=== PATIENT | male | born 1955 | race African-American/Black ===

== ENCOUNTER 2019-10-05 17:47 | Inpatient (IN) ==
[2019-10-05] MEDS ORDERED: FUROSEMIDE 40 MG/4 ML VIAL IV STA (19:03)
[2019-10-05 19:08] LABS: ABG Base Excess 14.6 MMOL/L (-2.5-2.5); ABG HCO3 38.3 MMOL/L (20-26); ABG Oxygen Saturation 90.6 % (95-100); ABG PO2 67.3 MM HG (80-95); ABG TCO2 45.2 MMOL/L (23-27); Allen Test Positive
[2019-10-05 19:13] LABS: ABG PH 7.191 (7.35-7.45)
[2019-10-05 19:13] LABS: Basophils % 0.2 % (0.0-0.8); Eosinophils # 0.2 10*3/uL (0.0-0.87); Eosinophils % 1.7 % (0.00-10.9); Hematocrit 39.3 VOL% (42.0-52.0); Hemoglobin 10.6 GM/DL (14.0-18.0); Immature Granulocytes % 1.2 %; Immature Granulocytes Absolute 0.14 #; Lymphocytes # 1.3 10*3/uL (1.4-4.0); Lymphocytes % 11.4 % (21.2-54.2); Mean Corpuscular Volume 96.8 FL (87-102); Mean Platelet Volume 10.1 FL (9.6-12.0); Monocytes % 6.2 % (1.7-12.7); Neutrophils % 79.3 % (38.7-73.9); Platelet Count 210 T/CUMM (130-400); Red Blood Count 4.06 MC/CUMM (3.8-5.5); Red Cell Distribution Width 13.4 % (9.3-17.3); White Blood Count 11.5 T/CUMM (4-12)
[2019-10-05 19:25] LABS: PT Patient Result 10.7 SECS (9.6-12.2)
[2019-10-05 19:30] LABS: Hypochromasia 1+
[2019-10-05 19:31] LABS: Basophilic Stippling Few; Stomatocytes 1+
[2019-10-05 19:32] LABS: Platelet Estimate Adequate; Polychromasia Few
[2019-10-05 19:33] LABS: Alanine Aminotransferase < 6 U/L (16-61); Albumin 2.9 G/DL (3.4-5.0); Alkaline Phosphatase 98 U/L (45-117); Aspartate Amino Transferase 11 U/L (0-37); Blood Urea Nitrogen 10 MG/DL (7-18); Calcium 8.6 MG/DL (8.5-10.1); Estimated Glom Filtration Rate 209 ML/MIN; Glucose 108 MG/DL (74-106); Osmolality,Calculated 274.7 MOS/KG (273-304); Total Protein 7.6 G/DL (6.4-8.3)
[2019-10-05 20:25] LABS: ABG Base Excess 16.8 MMOL/L (-2.5-2.5); ABG HCO3 40.7 MMOL/L (20-26); ABG Oxygen Saturation 86.7 % (95-100); ABG PH 7.255 (7.35-7.45); ABG PO2 57.6 MM HG (80-95); ABG TCO2 45.4 MMOL/L (23-27)
[2019-10-05] MEDS ORDERED: FUROSEMIDE 40 MG/4 ML VIAL IV ONE (21:20)
[2019-10-05 21:55] LABS: ABG Base Excess 17.7 MMOL/L (-2.5-2.5); ABG HCO3 41.6 MMOL/L (20-26); ABG Oxygen Saturation 88.1 % (95-100); ABG PH 7.239 (7.35-7.45); ABG PO2 58.6 MM HG (80-95); ABG TCO2 46.9 MMOL/L (23-27)
[2019-10-05] MEDS ORDERED: SUCCINYLCHOLINE 200 MG/10 ML VIAL ONE (22:42)
[2019-10-05] MEDS ORDERED: LIDOCAINE 100 MG/5 ML SYRINGE ONE (22:45)
[2019-10-05] MEDS ORDERED: ETOMIDATE 20 MG/10 ML VIAL IV ONE (22:50)
[2019-10-05] MEDS ORDERED: ROCURONIUM 100 MG/10 ML VIAL IV ONE (22:51)
[2019-10-05] MEDS ORDERED: ACETAMINOPHEN 325 MG TABLET PO PRN (22:59)
[2019-10-05] MEDS ORDERED: ONDANSETRON 4 MG/2 ML VIAL IV PRN (22:59)
[2019-10-05] MEDS ORDERED: PROPOFOL 1,000 MG/100 ML BOTTLE IV ONE (23:05)
[2019-10-05] MEDS: PROPOFOL 1,000 MG/100 ML BOTTLE IV SCH (23:59)
[2019-10-06] MEDS ORDERED: PHENYLEPHRINE DRIP 40 MG/250 ML PREMIX IV ONE (00:16)
[2019-10-06] MEDS ORDERED: PHENYLEPHRINE DRIP 40 MG/250 ML PREMIX IV PRN (00:21)
[2019-10-06 00:55] LABS: ABG Base Excess 19.4 MMOL/L (-2.5-2.5); ABG HCO3 43.8 MMOL/L (20-26); ABG Oxygen Saturation 98.9 % (95-100); ABG PCO2 59.6 MM HG (35-48); ABG PH 7.499 (7.35-7.45); ABG PO2 90.5 MM HG (80-95); ABG TCO2 41.3 MMOL/L (23-27); Allen Test Positive; Pt O2 Delivery Device Ventilator
[2019-10-06] MEDS: methylPREDNISolone SOD SUC 40 MG/1 ML VIAL IV SCH ×4 (01:01→18:10)
[2019-10-06] MEDS: MEROPENEM 500 MG in SODIUM CHLORIDE 0.9% 100 ML IV SCH ×4 (01:01→18:39)
[2019-10-06] MEDS: ALBUTEROL/IPRATROPIUM 3 ML NEB RESP TX SCH ×4 (01:52→19:58)
[2019-10-06] MEDS ORDERED: SKIN HEALING OINT (AQUAPHOR) 50 GM TUBE TOP PRN (03:49)
[2019-10-06 04:08] LABS: ABG HCO3 45.4 MMOL/L (20-26); ABG Oxygen Saturation 98.2 % (95-100); ABG PCO2 54.8 MM HG (35-48); ABG PH 7.536 (7.35-7.45); ABG PO2 89.9 MM HG (80-95); ABG TCO2 47.1 MMOL/L (23-27); Allen Test Positive; Pt O2 Delivery Device Ventilator
[2019-10-06] MEDS: ALBUMIN 25% 25 GM in PREMIX 1 EACH IV SCH ×3 (04:41→20:34)
[2019-10-06] MEDS: PROPOFOL 1,000 MG/100 ML BOTTLE IV SCH ×4 (04:42→23:12)
[2019-10-06] MEDS: AZITHROMYCIN INJ 250 MG in SODIUM CHLORIDE 0.9% 250 ML IV SCH (05:35)
[2019-10-06 05:36] LABS: Albumin 3.1 G/DL (3.4-5.0); Bilirubin,Total 1.1 MG/DL (0.2-1.0); Calcium 8.6 MG/DL (8.5-10.1); Osmolality,Calculated 270.1 MOS/KG (273-304); Total Protein 7.6 G/DL (6.4-8.3)
[2019-10-06] MEDS ORDERED: MAGNESIUM SULF RIDER 4 GM in PREMIX 1 EACH IV PRN (05:44)
[2019-10-06] MEDS ORDERED: MAGNESIUM SULF RIDER 2 GM in PREMIX 1 EACH IV PRN (05:44)
[2019-10-06] MEDS: INSULIN REGULAR 100 UNIT/ML SUBCUT SCH ×3 (05:55→17:33)
[2019-10-06] MEDS ORDERED: MAGNESIUM SULF RIDER 2 GM in PREMIX 1 EACH IV ONE (07:38)
[2019-10-06] MEDS: FUROSEMIDE 40 MG/4 ML VIAL IV SCH ×2 (09:08→16:44)
[2019-10-06] MEDS: PANTOPRAZOLE 40 MG TABLET PO SCH (09:09)
[2019-10-06] MEDS: BISACODYL 5 MG TABLET PO SCH (09:09)
[2019-10-06] MEDS: POTASSIUM CHLORIDE 10 MEQ TABLET PO SCH (09:10)
[2019-10-06] MEDS: DOCUSATE SODIUM 100 MG CAPSULE PO SCH ×2 (09:11→20:34)
[2019-10-06] MEDS: METOPROLOL TARTRATE 25 MG TABLET PO SCH ×2 (09:11→20:34)
[2019-10-06] MEDS: POLYETHYLENE GLYCOL POWDER 255 GM BOTTLE PO SCH (09:57)
[2019-10-06] MEDS ORDERED: GLUCAGON 1 MG VIAL IM PRN (15:59)
[2019-10-06] MEDS ORDERED: DEXTROSE 10% 25 GM/250 ML BAG IV PRN (15:59)
[2019-10-06] MEDS ORDERED: FUROSEMIDE 40 MG/4 ML VIAL IV ONE (21:20)
[2019-10-07] MEDS: INSULIN REGULAR 100 UNIT/ML SUBCUT SCH ×4 (00:01→18:18)
[2019-10-07] MEDS: ALBUTEROL/IPRATROPIUM 3 ML NEB RESP TX SCH ×4 (01:38→19:30)
[2019-10-07] MEDS: methylPREDNISolone SOD SUC 40 MG/1 ML VIAL IV SCH ×4 (01:45→18:17)
[2019-10-07] MEDS: MEROPENEM 500 MG in SODIUM CHLORIDE 0.9% 100 ML IV SCH ×4 (01:50→18:18)
[2019-10-07] MEDS: ALBUMIN 25% 25 GM in PREMIX 1 EACH IV SCH ×3 (04:05→20:35)
[2019-10-07 04:38] LABS: ABG Base Excess 17.4 MMOL/L (-2.5-2.5); ABG Oxygen Saturation 93.9 % (95-100); ABG PCO2 49.2 MM HG (35-48); ABG PH 7.549 (7.35-7.45); ABG PO2 63.9 MM HG (80-95); ABG TCO2 43.5 MMOL/L (23-27); Allen Test Positive; Pt O2 Delivery Device Ventilator
[2019-10-07 04:38] LABS: Basophils % 0.1 % (0.0-0.8); Hematocrit 34.7 VOL% (42.0-52.0); Hemoglobin 10.5 GM/DL (14.0-18.0); Immature Granulocytes % 0.6 %; Immature Granulocytes Absolute 0.07 #; Lymphocytes # 0.5 10*3/uL (1.4-4.0); Lymphocytes % 3.8 % (21.2-54.2); Mean Corpuscular HGB Conc 30.3 GM/DL (32-36); Mean Corpuscular Volume 85.7 FL (87-102); Mean Platelet Volume 10.6 FL (9.6-12.0); Monocytes % 3.1 % (1.7-12.7); Neutrophils % 92.4 % (38.7-73.9); Platelet Count 239 T/CUMM (130-400); Red Blood Count 4.05 MC/CUMM (3.8-5.5); Red Cell Distribution Width 13.6 % (9.3-17.3); White Blood Count 12.1 T/CUMM (4-12)
[2019-10-07 04:58] LABS: Prealbumin 10.9 MG/DL (20-40)
[2019-10-07] MEDS: AZITHROMYCIN INJ 250 MG in SODIUM CHLORIDE 0.9% 250 ML IV SCH (05:20)
[2019-10-07 05:46] LABS: Band Neutrophils 2 % (0-10); Lymphocytes 3 % (20-55); Platelet Estimate Normal; Segmented Neutrophils 93 % (50-85); Total Cells Counted 100
[2019-10-07] MEDS: POTASSIUM CHLORIDE 10 MEQ TABLET PO SCH (08:22)
[2019-10-07] MEDS: METOPROLOL TARTRATE 25 MG TABLET PO SCH ×2 (08:22→20:35)
[2019-10-07] MEDS: DOCUSATE SODIUM 100 MG CAPSULE PO SCH (08:22)
[2019-10-07] MEDS: PANTOPRAZOLE 40 MG TABLET PO SCH (08:22)
[2019-10-07] MEDS: FUROSEMIDE 40 MG/4 ML VIAL IV SCH ×2 (08:23→16:15)
[2019-10-07] MEDS: POLYETHYLENE GLYCOL POWDER 255 GM BOTTLE PO SCH (08:28)
[2019-10-07] MEDS: PROPOFOL 1,000 MG/100 ML BOTTLE IV SCH ×2 (11:23→21:10)
[2019-10-07] MEDS: DOCUSATE SODIUM 100 MG/10 ML UDCUP PO SCH (20:35)
[2019-10-08] MEDS: PROPOFOL 1,000 MG/100 ML BOTTLE IV SCH ×3 (00:10→19:20)
[2019-10-08] MEDS: INSULIN REGULAR 100 UNIT/ML SUBCUT SCH ×4 (00:18→18:00)
[2019-10-08] MEDS: methylPREDNISolone SOD SUC 40 MG/1 ML VIAL IV SCH ×4 (00:34→18:30)
[2019-10-08] MEDS: MEROPENEM 500 MG in SODIUM CHLORIDE 0.9% 100 ML IV SCH ×4 (00:34→18:30)
[2019-10-08] MEDS: ALBUTEROL/IPRATROPIUM 3 ML NEB RESP TX SCH ×4 (01:10→19:50)
[2019-10-08] MEDS: ALBUMIN 25% 25 GM in PREMIX 1 EACH IV SCH (04:03)
[2019-10-08 04:53] LABS: ABG Base Excess 17.6 MMOL/L (-2.5-2.5); ABG HCO3 41.7 MMOL/L (20-26); ABG Oxygen Saturation 96.6 % (95-100); ABG PCO2 48.8 MM HG (35-48); ABG PO2 74.5 MM HG (80-95); ABG TCO2 38.4 MMOL/L (23-27); Allen Test Positive; Pt O2 Delivery Device Ventilator
[2019-10-08] MEDS: AZITHROMYCIN INJ 250 MG in SODIUM CHLORIDE 0.9% 250 ML IV SCH (04:56)
[2019-10-08 06:03] LABS: Hematocrit 33.7 VOL% (42.0-52.0); Hemoglobin 10.2 GM/DL (14.0-18.0); Immature Granulocytes % 0.7 %; Immature Granulocytes Absolute 0.07 #; Lymphocytes # 0.3 10*3/uL (1.4-4.0); Lymphocytes % 3.2 % (21.2-54.2); Mean Corpuscular HGB Conc 30.3 GM/DL (32-36); Mean Corpuscular Volume 85.5 FL (87-102); Mean Platelet Volume 11.2 FL (9.6-12.0); Monocytes % 3.9 % (1.7-12.7); Neutrophils % 92.2 % (38.7-73.9); Platelet Count 228 T/CUMM (130-400); Red Blood Count 3.94 MC/CUMM (3.8-5.5); Red Cell Distribution Width 13.7 % (9.3-17.3); White Blood Count 9.9 T/CUMM (4-12)
[2019-10-08 06:20] LABS: Alanine Aminotransferase < 9 U/L (16-61); Albumin 4.1 G/DL (3.4-5.0); Alkaline Phosphatase 69 U/L (45-117); Aspartate Amino Transferase 10 U/L (0-37); Blood Urea Nitrogen 37 MG/DL (7-18); Calcium 9.2 MG/DL (8.5-10.1); Estimated Glom Filtration Rate 172 ML/MIN; Glucose 178 MG/DL (74-106); Osmolality,Calculated 289.5 MOS/KG (273-304); Total Protein 7.7 G/DL (6.4-8.3)
[2019-10-08 06:36] LABS: Hypochromasia 3+; Lymphocytes 4 % (20-55); Platelet Estimate Normal; Segmented Neutrophils 93 % (50-85); Total Cells Counted 100
[2019-10-08] MEDS: PANTOPRAZOLE 40 MG TABLET PO SCH (09:00)
[2019-10-08] MEDS: FUROSEMIDE 40 MG/4 ML VIAL IV SCH (09:00)
[2019-10-08] MEDS: DOCUSATE SODIUM 100 MG/10 ML UDCUP PO SCH ×2 (09:05→21:52)
[2019-10-08] MEDS: MULTIVITAMIN LIQUID (CENTRUM) 60 ML BOTTLE PO SCH (09:05)
[2019-10-08] MEDS: METOPROLOL TARTRATE 25 MG TABLET PO SCH ×2 (09:05→21:53)
[2019-10-08] MEDS: POLYETHYLENE GLYCOL POWDER 255 GM BOTTLE PO SCH (09:05)
[2019-10-08] MEDS: POTASSIUM CHLORIDE 10 MEQ TABLET PO SCH (09:05)
[2019-10-09] MEDS: ALBUTEROL/IPRATROPIUM 3 ML NEB RESP TX SCH ×4 (00:51→19:00)
[2019-10-09] MEDS: MEROPENEM 500 MG in SODIUM CHLORIDE 0.9% 100 ML IV SCH ×4 (01:30→18:55)
[2019-10-09] MEDS: methylPREDNISolone SOD SUC 40 MG/1 ML VIAL IV SCH ×4 (01:32→18:55)
[2019-10-09] MEDS: INSULIN REGULAR 100 UNIT/ML SUBCUT SCH ×4 (01:32→18:55)
[2019-10-09 04:03] LABS: Allen Test Positive; Pt O2 Delivery Device Ventilator
[2019-10-09 04:04] LABS: ABG HCO3 35.8 MMOL/L (20-26); ABG Oxygen Saturation 97.9 % (95-100); ABG PCO2 39.6 MM HG (35-48); ABG PH 7.561 (7.35-7.45); ABG PO2 85.5 MM HG (80-95); ABG TCO2 31.5 MMOL/L (23-27)
[2019-10-09] MEDS: PROPOFOL 1,000 MG/100 ML BOTTLE IV SCH (06:00)
[2019-10-09 06:01] LABS: Albumin 3.8 G/DL (3.4-5.0); Bilirubin,Total 0.7 MG/DL (0.2-1.0); Calcium 8.9 MG/DL (8.5-10.1); Osmolality,Calculated 289.5 MOS/KG (273-304); Total Protein 7.7 G/DL (6.4-8.3)
[2019-10-09 06:03] LABS: Basophils % 0.1 % (0.0-0.8); Hematocrit 38.3 VOL% (42.0-52.0); Immature Granulocytes % 0.7 %; Immature Granulocytes Absolute 0.09 #; Lymphocytes # 0.6 10*3/uL (1.4-4.0); Lymphocytes % 4.7 % (21.2-54.2); Mean Corpuscular HGB Conc 30.5 GM/DL (32-36); Mean Corpuscular Volume 86.5 FL (87-102); Mean Platelet Volume 11.1 FL (9.6-12.0); Monocytes % 8.2 % (1.7-12.7); Neutrophils % 86.3 % (38.7-73.9); Platelet Count 224 T/CUMM (130-400); Red Blood Count 4.43 MC/CUMM (3.8-5.5); Red Cell Distribution Width 13.9 % (9.3-17.3); White Blood Count 12.1 T/CUMM (4-12)
[2019-10-09 06:04] LABS: Hemoglobin 11.7 GM/DL (14.0-18.0)
[2019-10-09] MEDS: AZITHROMYCIN INJ 250 MG in SODIUM CHLORIDE 0.9% 250 ML IV SCH (06:35)
[2019-10-09 06:38] LABS: Lymphocytes 8 % (20-55); Metamyelocytes 1 %; Platelet Estimate Normal; Polychromasia Few; Segmented Neutrophils 88 % (50-85); Total Cells Counted 100
[2019-10-09] MEDS: FUROSEMIDE 40 MG/4 ML VIAL IV SCH (08:25)
[2019-10-09] MEDS: METOPROLOL TARTRATE 25 MG TABLET PO SCH ×2 (08:30→21:14)
[2019-10-09] MEDS: DOCUSATE SODIUM 100 MG/10 ML UDCUP PO SCH ×2 (08:30→21:14)
[2019-10-09] MEDS: POLYETHYLENE GLYCOL POWDER 255 GM BOTTLE PO SCH (08:30)
[2019-10-09] MEDS: POTASSIUM CHLORIDE 10 MEQ TABLET PO SCH (08:30)
[2019-10-09] MEDS: MULTIVITAMIN LIQUID (CENTRUM) 60 ML BOTTLE PO SCH (08:30)
[2019-10-09] MEDS: BISACODYL 5 MG TABLET PO SCH (09:50)
[2019-10-09] MEDS: PANTOPRAZOLE 40 MG TABLET PO SCH (09:50)
[2019-10-10] MEDS: ALBUTEROL/IPRATROPIUM 3 ML NEB RESP TX SCH ×4 (00:28→19:25)
[2019-10-10] MEDS: INSULIN REGULAR 100 UNIT/ML SUBCUT SCH ×5 (00:57→21:48)
[2019-10-10] MEDS: MEROPENEM 500 MG in SODIUM CHLORIDE 0.9% 100 ML IV SCH ×4 (01:55→18:40)
[2019-10-10] MEDS: methylPREDNISolone SOD SUC 40 MG/1 ML VIAL IV SCH ×4 (01:55→18:40)
[2019-10-10 02:55] LABS: ABG Base Excess 6.5 MMOL/L (-2.5-2.5); ABG HCO3 30.3 MMOL/L (20-26); ABG Oxygen Saturation 93.7 % (95-100); ABG PH 7.289 (7.35-7.45); ABG PO2 79.8 MM HG (80-95); ABG TCO2 32.6 MMOL/L (23-27); Allen Test Positive
[2019-10-10 03:00] LABS: ABG PCO2 75.3 MM HG (35-48)
[2019-10-10 05:03] LABS: Basophils % 0.1 % (0.0-0.8); Immature Granulocytes % 0.6 %; Immature Granulocytes Absolute 0.09 #; Lymphocytes # 0.6 10*3/uL (1.4-4.0); Lymphocytes % 3.6 % (21.2-54.2); Mean Corpuscular HGB Conc 28.8 GM/DL (32-36); Mean Corpuscular Volume 89.2 FL (87-102); Mean Platelet Volume 11.3 FL (9.6-12.0); Monocytes % 5.8 % (1.7-12.7); Neutrophils % 89.9 % (38.7-73.9); Platelet Count 249 T/CUMM (130-400); Red Blood Count 4.91 MC/CUMM (3.8-5.5); White Blood Count 16.2 T/CUMM (4-12)
[2019-10-10 05:30] LABS: Hematocrit 43.7 VOL% (42.0-52.0); Hemoglobin 12.7 GM/DL (14.0-18.0)
[2019-10-10 05:37] LABS: Albumin 3.9 G/DL (3.4-5.0); Calcium 9.2 MG/DL (8.5-10.1); Osmolality,Calculated 289.5 MOS/KG (273-304); Total Protein 7.9 G/DL (6.4-8.3)
[2019-10-10 05:45] LABS: Lymphocytes 3 % (20-55); Segmented Neutrophils 95 % (50-85); Total Cells Counted 100
[2019-10-10 05:46] LABS: Hypochromasia Slight; Platelet Estimate Normal
[2019-10-10 05:47] LABS: Stomatocytes Few
[2019-10-10] MEDS: AZITHROMYCIN INJ 250 MG in SODIUM CHLORIDE 0.9% 250 ML IV SCH (06:00)
[2019-10-10] MEDS: DOCUSATE SODIUM 100 MG/10 ML UDCUP PO SCH (09:19)
[2019-10-10] MEDS: FUROSEMIDE 40 MG/4 ML VIAL IV SCH (09:19)
[2019-10-10] MEDS: METOPROLOL TARTRATE 25 MG TABLET PO SCH ×2 (09:20→21:45)
[2019-10-10] MEDS: PANTOPRAZOLE 40 MG TABLET PO SCH (09:20)
[2019-10-10] MEDS: POTASSIUM CHLORIDE 10 MEQ TABLET PO SCH (09:20)
[2019-10-10] MEDS: MULTIVITAMIN LIQUID (CENTRUM) 60 ML BOTTLE PO SCH (09:35)
[2019-10-10] MEDS: THEOPHYLLINE ER (24 HR) 300 MG CAPSULE PO SCH (09:38)
[2019-10-10] MEDS: POLYETHYLENE GLYCOL POWDER 255 GM BOTTLE PO SCH (13:23)
[2019-10-10] MEDS: DOCUSATE SODIUM 100 MG CAPSULE PO SCH (21:44)
[2019-10-11] MEDS: ALBUTEROL/IPRATROPIUM 3 ML NEB RESP TX SCH ×4 (01:08→19:55)
[2019-10-11] MEDS: methylPREDNISolone SOD SUC 40 MG/1 ML VIAL IV SCH ×4 (01:50→21:34)
[2019-10-11] MEDS: MEROPENEM 500 MG in SODIUM CHLORIDE 0.9% 100 ML IV SCH ×4 (01:53→19:12)
[2019-10-11 05:09] LABS: ABG Base Excess 7.5 MMOL/L (-2.5-2.5); ABG HCO3 31.2 MMOL/L (20-26); ABG Oxygen Saturation 92.7 % (95-100); ABG PCO2 58.4 MM HG (35-48); ABG PH 7.381 (7.35-7.45); ABG PO2 67.4 MM HG (80-95); ABG TCO2 30.8 MMOL/L (23-27); Allen Test Positive; Pt O2 Delivery Device CPAP
[2019-10-11] MEDS: AZITHROMYCIN INJ 250 MG in SODIUM CHLORIDE 0.9% 250 ML IV SCH (05:27)
[2019-10-11 06:11] LABS: Basophils % 0.1 % (0.0-0.8); Hematocrit 39.6 VOL% (42.0-52.0); Immature Granulocytes % 0.8 %; Immature Granulocytes Absolute 0.15 #; Lymphocytes # 0.4 10*3/uL (1.4-4.0); Lymphocytes % 2.2 % (21.2-54.2); Mean Corpuscular HGB Conc 30.3 GM/DL (32-36); Mean Corpuscular Volume 87.8 FL (87-102); Mean Platelet Volume 11.6 FL (9.6-12.0); Monocytes % 2.8 % (1.7-12.7); Neutrophils % 94.1 % (38.7-73.9); Platelet Count 246 T/CUMM (130-400); Red Blood Count 4.51 MC/CUMM (3.8-5.5); White Blood Count 18.3 T/CUMM (4-12)
[2019-10-11 06:19] LABS: Calcium 8.5 MG/DL (8.5-10.1); Osmolality,Calculated 293.4 MOS/KG (273-304)
[2019-10-11 06:31] LABS: Anisocytosis Slight; Lymphocytes 3 % (20-55); Microcytosis 1+; Platelet Estimate Normal; Segmented Neutrophils 95 % (50-85); Total Cells Counted 100
[2019-10-11 06:32] LABS: Hypochromasia 2+
[2019-10-11 06:33] LABS: Stomatocytes Slight; Target Cells Few
[2019-10-11] MEDS: INSULIN REGULAR 100 UNIT/ML SUBCUT SCH ×4 (08:52→21:33)
[2019-10-11] MEDS: PANTOPRAZOLE 40 MG TABLET PO SCH (10:13)
[2019-10-11] MEDS: METOPROLOL TARTRATE 25 MG TABLET PO SCH ×2 (10:13→21:33)
[2019-10-11] MEDS: MULTIVITAMIN (CENTRUM) TABLET PO SCH (10:13)
[2019-10-11] MEDS: DOCUSATE SODIUM 100 MG CAPSULE PO SCH ×2 (10:13→21:33)
[2019-10-11] MEDS: POTASSIUM CHLORIDE 10 MEQ TABLET PO SCH (10:13)
[2019-10-11] MEDS: FUROSEMIDE 40 MG/4 ML VIAL IV SCH (10:13)
[2019-10-11] MEDS: POLYETHYLENE GLYCOL POWDER 255 GM BOTTLE PO SCH (10:14)
[2019-10-11] MEDS: THEOPHYLLINE ER (24 HR) 300 MG CAPSULE PO SCH (11:16)
[2019-10-12] MEDS: ALBUTEROL/IPRATROPIUM 3 ML NEB RESP TX SCH ×4 (01:08→19:31)
[2019-10-12] MEDS: MEROPENEM 500 MG in SODIUM CHLORIDE 0.9% 100 ML IV SCH ×4 (01:33→23:20)
[2019-10-12] MEDS: AZITHROMYCIN INJ 250 MG in SODIUM CHLORIDE 0.9% 250 ML IV SCH (05:13)
[2019-10-12 05:56] LABS: Calcium 8.4 MG/DL (8.5-10.1); Osmolality,Calculated 288.4 MOS/KG (273-304)
[2019-10-12 07:01] LABS: Basophils % 0.1 % (0.0-0.8); Hematocrit 43.3 VOL% (42.0-52.0); Hemoglobin 12.2 GM/DL (14.0-18.0); Immature Granulocytes % 0.7 %; Immature Granulocytes Absolute 0.14 #; Lymphocytes # 0.7 10*3/uL (1.4-4.0); Lymphocytes % 3.5 % (21.2-54.2); Mean Corpuscular HGB Conc 28.2 GM/DL (32-36); Mean Corpuscular Volume 92.5 FL (87-102); Mean Platelet Volume 12.4 FL (9.6-12.0); Monocytes % 4.3 % (1.7-12.7); Neutrophils % 91.4 % (38.7-73.9); Platelet Count 242 T/CUMM (130-400); Red Blood Count 4.68 MC/CUMM (3.8-5.5); Red Cell Distribution Width 14.3 % (9.3-17.3); White Blood Count 20.5 T/CUMM (4-12)
[2019-10-12 07:09] LABS: Lymphocytes 5 % (20-55); Nucleated Red Blood Cells 2 (0-5); Platelet Estimate Normal; Segmented Neutrophils 89 % (50-85); Total Cells Counted 100
[2019-10-12 07:10] LABS: Anisocytosis 1+
[2019-10-12] MEDS: METOPROLOL TARTRATE 25 MG TABLET PO SCH ×2 (09:53→21:31)
[2019-10-12] MEDS: THEOPHYLLINE ER (24 HR) 300 MG CAPSULE PO SCH (09:53)
[2019-10-12] MEDS: BISACODYL 5 MG TABLET PO SCH (09:54)
[2019-10-12] MEDS: methylPREDNISolone SOD SUC 40 MG/1 ML VIAL IV SCH ×2 (09:54→21:32)
[2019-10-12] MEDS: INSULIN REGULAR 100 UNIT/ML SUBCUT SCH ×4 (09:54→21:30)
[2019-10-12] MEDS: PANTOPRAZOLE 40 MG TABLET PO SCH (09:54)
[2019-10-12] MEDS: FUROSEMIDE 40 MG/4 ML VIAL IV SCH (09:54)
[2019-10-12] MEDS: MULTIVITAMIN (CENTRUM) TABLET PO SCH (09:54)
[2019-10-12] MEDS: POTASSIUM CHLORIDE 10 MEQ TABLET PO SCH (09:54)
[2019-10-12] MEDS: DOCUSATE SODIUM 100 MG CAPSULE PO SCH ×2 (09:54→21:31)
[2019-10-12] MEDS: POLYETHYLENE GLYCOL POWDER 255 GM BOTTLE PO SCH (09:55)
[2019-10-13] MEDS: ALBUTEROL/IPRATROPIUM 3 ML NEB RESP TX SCH ×4 (00:48→19:32)
[2019-10-13] MEDS: MEROPENEM 500 MG in SODIUM CHLORIDE 0.9% 100 ML IV SCH ×3 (04:31→16:14)
[2019-10-13] MEDS: AZITHROMYCIN INJ 250 MG in SODIUM CHLORIDE 0.9% 250 ML IV SCH (05:20)
[2019-10-13 05:23] LABS: Prealbumin 22.7 MG/DL (20-40)
[2019-10-13] MEDS: INSULIN REGULAR 100 UNIT/ML SUBCUT SCH ×4 (08:42→22:15)
[2019-10-13] MEDS: POTASSIUM CHLORIDE 10 MEQ TABLET PO SCH (10:20)
[2019-10-13] MEDS: METOPROLOL TARTRATE 25 MG TABLET PO SCH ×2 (10:20→22:14)
[2019-10-13] MEDS: THEOPHYLLINE ER (24 HR) 300 MG CAPSULE PO SCH (10:20)
[2019-10-13] MEDS: MULTIVITAMIN (CENTRUM) TABLET PO SCH (10:20)
[2019-10-13] MEDS: DOCUSATE SODIUM 100 MG CAPSULE PO SCH ×2 (10:21→22:14)
[2019-10-13] MEDS: PANTOPRAZOLE 40 MG TABLET PO SCH (10:21)
[2019-10-13] MEDS: FUROSEMIDE 40 MG/4 ML VIAL IV SCH (10:21)
[2019-10-13] MEDS: methylPREDNISolone SOD SUC 40 MG/1 ML VIAL IV SCH ×2 (10:22→22:14)
[2019-10-13] MEDS: POLYETHYLENE GLYCOL POWDER 255 GM BOTTLE PO SCH (10:27)
[2019-10-14] MEDS: ALBUTEROL/IPRATROPIUM 3 ML NEB RESP TX SCH ×2 (00:46→07:19)
[2019-10-14] MEDS: MEROPENEM 500 MG in SODIUM CHLORIDE 0.9% 100 ML IV SCH ×2 (01:08→06:10)
[2019-10-14] MEDS: INSULIN REGULAR 100 UNIT/ML SUBCUT SCH (09:34)
[2019-10-14] MEDS: DOCUSATE SODIUM 100 MG CAPSULE PO SCH (09:36)
[2019-10-14] MEDS: FUROSEMIDE 40 MG/4 ML VIAL IV SCH (09:36)
[2019-10-14] MEDS: THEOPHYLLINE ER (24 HR) 300 MG CAPSULE PO SCH (09:36)
[2019-10-14] MEDS: METOPROLOL TARTRATE 25 MG TABLET PO SCH (09:37)
[2019-10-14] MEDS: POTASSIUM CHLORIDE 10 MEQ TABLET PO SCH (09:37)
[2019-10-14] MEDS: MULTIVITAMIN (CENTRUM) TABLET PO SCH (09:37)
[2019-10-14] MEDS: POLYETHYLENE GLYCOL POWDER 255 GM BOTTLE PO SCH (09:41)
[2019-10-14] MEDS: PANTOPRAZOLE 40 MG TABLET PO SCH (10:08)
[2019-10-14] MEDS: methylPREDNISolone SOD SUC 40 MG/1 ML VIAL IV SCH (10:08)
[2019-10-14 11:50] VITALS: BP 132/46
== END 2019-10-14 12:05 | disposition home or self-care (01) | DRG 208 ==
LOC: N.ED 17:47 → N.EDINP 22:59 → N.ICU 23:11 → N.3E 10-10 17:56
PROVIDERS: ADMIT Internal Medicine; ATTEND Internal Medicine

== ENCOUNTER 2021-09-13 01:37 | Inpatient (IN) ==
[2021-09-13] MEDS ORDERED: SODIUM CHLORIDE 0.9% 1,000 ML IV STA (02:01)
[2021-09-13] MEDS ORDERED: ONDANSETRON 4 MG/2 ML VIAL IV STA (02:01)
[2021-09-13] MEDS ORDERED: PANTOPRAZOLE 40 MG VIAL IV STA (02:01)
[2021-09-13 03:30] LABS: Basophils % 0.1 % (0.0-0.8); Hematocrit 30.1 VOL% (42.0-52.0); Hemoglobin 9.5 GM/DL (14.0-18.0); Immature Granulocytes % 1.5 %; Immature Granulocytes Absolute 0.38 #; Lymphocytes # 0.5 10*3/uL (1.4-4.0); Lymphocytes % 1.8 % (21.2-54.2); Mean Corpuscular HGB Conc 31.6 GM/DL (32-36); Mean Corpuscular Volume 80.9 FL (87-102); Mean Platelet Volume 10.6 FL (9.6-12.0); Monocytes % 3.8 % (1.7-12.7); NRBC # 0.17 10*3/uL; Neutrophils % 92.8 % (38.7-73.9); Platelet Count 411 T/CUMM (130-400); Red Blood Count 3.72 MC/CUMM (3.8-5.5); Red Cell Distribution Width 15.4 % (9.3-17.3)
[2021-09-13] MEDS ORDERED: PIPERACILLIN/TAZOBACTAM 3,375 MG in SODIUM CHLORIDE 0.9% 100 ML IV STA (03:55)
[2021-09-13 04:00] LABS: Alanine Aminotransferase 17 U/L (16-61); Alkaline Phosphatase 319 U/L (45-117); Amylase 13 U/L (25-115); Aspartate Amino Transferase 178 U/L (0-37); Blood Urea Nitrogen 58 MG/DL (7-18); Calcium 9.2 MG/DL (8.5-10.1); Carbon Dioxide 28 MMOL/L (21-32); Estimated Glom Filtration Rate 51 ML/MIN; Glucose 109 MG/DL (74-106); Osmolality,Calculated 289.8 MOS/KG (273-304); Potassium 5.8 MMOL/L (3.5-5.1); Sodium 137 MMOL/L (136-145)
[2021-09-13 04:45] LABS: Lymphocytes 3 % (20-55); Segmented Neutrophils 93 % (50-85); Total Cells Counted 100
[2021-09-13 04:46] LABS: Hypochromasia 1+; Microcytosis Slight; Target Cells Few
[2021-09-13 08:15] LABS: Amorphous Crystals,Urine Few /HPF (Few); Bacteria,Urine Many /HPF (Few); Bilirubin,Urine Small mg/dL (Negative); Blood, Urine Negative (Negative); Glucose,Urine (UA) Negative (Negative); Hyaline Casts,Urine 21 /LPF (0-3); Ketones,Urine Negative (Negative); Nitrite,Urine Negative (Negative); Protein,Urine 30 MG/DL; Squamous Epithelial Cell,Urine Occasional /HPF (0-10); Urine Appearance CLOUDY (Clear); Urine Color Amber (Yellow); Urine Specific Gravity 1.016 (1.001-1.035)
[2021-09-13] MEDS ORDERED: BISACODYL 5 MG TABLET PO PRN (09:21)
[2021-09-13] MEDS ORDERED: ALBUTEROL/IPRATROPIUM 3 ML NEB RESP TX PRN (09:21)
[2021-09-13] MEDS ORDERED: ONDANSETRON 4 MG/2 ML VIAL IV PRN ×2 (09:21→13:02)
[2021-09-13] MEDS ORDERED: MORPHINE 2 MG/1 ML SYRINGE IV PRN ×2 (09:21)
[2021-09-13] MEDS ORDERED: ACETAMINOPHEN 325 MG TABLET PO PRN ×2 (09:21→13:02)
[2021-09-13] MEDS ORDERED: DEXTROSE 50% 25 GM/50 ML VIAL IV PRN (13:02)
[2021-09-13] MEDS ORDERED: PIPERACILLIN/TAZOBACTAM 3,375 MG in SODIUM CHLORIDE 0.9% 100 ML IV SCH (13:02)
[2021-09-13] MEDS ORDERED: GLUCAGON 1 MG VIAL IM PRN (13:02)
[2021-09-13] MEDS ORDERED: MAGNESIUM HYDROXIDE SUSP 30 ML UDCUP PO PRN (13:02)
[2021-09-13] MEDS ORDERED: PANTOPRAZOLE 40 MG VIAL IV SCH (13:02)
[2021-09-13] MEDS ORDERED: SODIUM CHLORIDE 0.9% 1,000 ML IV SCH (13:02)
[2021-09-13] MEDS ORDERED: HYDROmorphone 2 MG TABLET PO PRN (13:02)
[2021-09-13] MEDS ORDERED: SODIUM CHLORIDE 0.9% 500 ML IV STA (13:24)
[2021-09-13] MEDS: LACTATED RINGERS 1,000 ML IV SCH (13:48)
[2021-09-13] MEDS: METOPROLOL TARTRATE 25 MG TABLET PO ONE ×2 (15:36→16:37)
[2021-09-13 15:37] LABS: INR 1.5; PT Patient Result 16.7 SECS (10.5-12.0)
[2021-09-13] MEDS: PIPERACILLIN/TAZOBACTAM 3,375 MG in SODIUM CHLORIDE 0.9% 100 ML IV SCH ×2 (15:41→20:50)
[2021-09-13] MEDS: AZITHROMYCIN INJ 500 MG in SODIUM CHLORIDE 0.9% 250 ML IV SCH (15:58)
[2021-09-13] MEDS: methylPREDNISolone SOD SUC 40 MG/1 ML VIAL IV SCH (15:58)
[2021-09-13] MEDS: FUROSEMIDE 40 MG TABLET PO SCH (15:58)
[2021-09-13] MEDS ORDERED: INSULIN REGULAR 100 UNIT/ML SUBCUT SCH (18:00)
[2021-09-13] MEDS: METOPROLOL TARTRATE 25 MG TABLET PO SCH (20:52)
[2021-09-13] MEDS: BUDESONIDE/FORMOTEROL 160-4.5 INHALER 6 GM INH SCH (20:52)
[2021-09-13] MEDS: DOCUSATE SODIUM 100 MG CAPSULE PO SCH (20:53)
[2021-09-13] MEDS ORDERED: ENOXAPARIN 40 MG/0.4 ML SYRINGE SUBCUT SCH (21:00)
[2021-09-13] MEDS ORDERED: DOCUSATE SODIUM 100 MG CAPSULE PO SCH (21:00)
[2021-09-14] MEDS: LACTATED RINGERS 1,000 ML IV SCH ×4 (01:30→17:42)
[2021-09-14] MEDS: methylPREDNISolone SOD SUC 40 MG/1 ML VIAL IV SCH ×2 (03:47→16:28)
[2021-09-14] MEDS: PIPERACILLIN/TAZOBACTAM 3,375 MG in SODIUM CHLORIDE 0.9% 100 ML IV SCH ×3 (03:48→20:56)
[2021-09-14 06:34] LABS: Basophils # 0.1 10*3/uL (0.0-0.2); Basophils % 0.2 % (0.0-0.8); Eosinophils % 0.1 % (0.00-10.9); Hematocrit 29.5 VOL% (42.0-52.0); Hemoglobin 9.2 GM/DL (14.0-18.0); Immature Granulocytes % 1.4 %; Immature Granulocytes Absolute 0.35 #; Lymphocytes # 0.3 10*3/uL (1.4-4.0); Lymphocytes % 1.1 % (21.2-54.2); Mean Corpuscular HGB Conc 31.2 GM/DL (32-36); Mean Corpuscular Volume 81.5 FL (87-102); Mean Platelet Volume 10.5 FL (9.6-12.0); Monocytes % 3.5 % (1.7-12.7); NRBC # 0.21 10*3/uL; Neutrophils % 93.7 % (38.7-73.9); Platelet Count 348 T/CUMM (130-400); Red Blood Count 3.62 MC/CUMM (3.8-5.5); Red Cell Distribution Width 15.9 % (9.3-17.3); White Blood Count 24.5 T/CUMM (4-12)
[2021-09-14 06:58] LABS: Band Neutrophils 2 % (0-10); Hypochromasia Slight; Lymphocytes 4 % (20-55); Microcytosis Slight; Platelet Estimate Normal; Segmented Neutrophils 89 % (50-85); Total Cells Counted 100
[2021-09-14] MEDS ORDERED: DIAZEPAM 5 MG TABLET PO ONE (07:00)
[2021-09-14 07:11] LABS: Albumin 1.8 G/DL (3.4-5.0); Bilirubin,Total 4.6 MG/DL (0.20-1.00); Calcium 8.9 MG/DL (8.5-10.1); Osmolality,Calculated 300.1 MOS/KG (273-304); Potassium 5.1 MMOL/L (3.5-5.1); Risk Ratio 24.71; Total Protein 7.1 G/DL (6.4-8.2); VLDL Cholesterol 47.8 MG/DL
[2021-09-14] MEDS ORDERED: SODIUM CHLORIDE 0.45% 1,000 ML IV SCH (07:30)
[2021-09-14] MEDS: PANTOPRAZOLE 40 MG TABLET PO SCH (10:24)
[2021-09-14] MEDS: FUROSEMIDE 40 MG TABLET PO SCH (10:24)
[2021-09-14] MEDS: BISACODYL 5 MG TABLET PO SCH (10:25)
[2021-09-14] MEDS: DOCUSATE SODIUM 100 MG CAPSULE PO SCH ×3 (10:25→21:12)
[2021-09-14] MEDS: BUDESONIDE/FORMOTEROL 160-4.5 INHALER 6 GM INH SCH ×2 (10:27→20:56)
[2021-09-14] MEDS ORDERED: GLUCAGON 1 MG VIAL IM PRN (12:10)
[2021-09-14] MEDS ORDERED: DEXTROSE 50% 25 GM/50 ML VIAL IV PRN (12:10)
[2021-09-14] MEDS: METOPROLOL TARTRATE 25 MG TABLET PO SCH ×2 (12:53→20:57)
[2021-09-14] MEDS: ALBUMIN 25% 25 GM/100 ML VIAL IV SCH (17:28)
[2021-09-14] MEDS: AZITHROMYCIN INJ 500 MG in SODIUM CHLORIDE 0.9% 250 ML IV SCH (17:28)
[2021-09-14] MEDS: ENOXAPARIN 30 MG/0.3 ML SYRINGE SUBCUT SCH (20:56)
[2021-09-15] MEDS: ALBUMIN 25% 25 GM/100 ML VIAL IV SCH ×3 (00:46→17:25)
[2021-09-15] MEDS: LACTATED RINGERS 1,000 ML IV SCH ×3 (03:16→17:25)
[2021-09-15] MEDS: methylPREDNISolone SOD SUC 40 MG/1 ML VIAL IV SCH ×2 (03:21→17:25)
[2021-09-15] MEDS: PIPERACILLIN/TAZOBACTAM 3,375 MG in SODIUM CHLORIDE 0.9% 100 ML IV SCH ×3 (04:55→22:03)
[2021-09-15 07:22] LABS: Basophils # 0.1 10*3/uL (0.0-0.2); Basophils % 0.2 % (0.0-0.8); Hematocrit 26.5 VOL% (42.0-52.0); Hemoglobin 8.3 GM/DL (14.0-18.0); Immature Granulocytes % 2.6 %; Immature Granulocytes Absolute 0.62 #; Lymphocytes # 0.1 10*3/uL (1.4-4.0); Lymphocytes % 0.5 % (21.2-54.2); Mean Corpuscular HGB Conc 31.3 GM/DL (32-36); Mean Corpuscular Volume 81.8 FL (87-102); Mean Platelet Volume 10.3 FL (9.6-12.0); Monocytes % 2.5 % (1.7-12.7); NRBC # 0.21 10*3/uL; Neutrophils % 94.2 % (38.7-73.9); Platelet Count 275 T/CUMM (130-400); Red Blood Count 3.24 MC/CUMM (3.8-5.5); Red Cell Distribution Width 16.2 % (9.3-17.3); White Blood Count 24.1 T/CUMM (4-12)
[2021-09-15 07:59] LABS: Albumin 2.4 G/DL (3.4-5.0); Bilirubin,Total 5.1 MG/DL (0.20-1.00); Calcium 8.9 MG/DL (8.5-10.1); Lymphocytes 1 % (20-55); Nucleated Red Blood Cells 1 (0-5); Osmolality,Calculated 298.4 MOS/KG (273-304); Potassium 4.7 MMOL/L (3.5-5.1); Segmented Neutrophils 95 % (50-85); Total Cells Counted 100; Total Protein 7.3 G/DL (6.4-8.2)
[2021-09-15 08:00] LABS: Hypochromasia 2+; Platelet Estimate Normal; Target Cells Few
[2021-09-15 08:01] LABS: Microcytosis 1+
[2021-09-15] MEDS: METOPROLOL TARTRATE 25 MG TABLET PO SCH ×2 (09:28→22:06)
[2021-09-15] MEDS: PANTOPRAZOLE 40 MG TABLET PO SCH (09:28)
[2021-09-15] MEDS: FUROSEMIDE 20 MG TABLET PO SCH (09:28)
[2021-09-15] MEDS: FENOFIBRATE 145 MG TABLET PO SCH (09:29)
[2021-09-15] MEDS: DOCUSATE SODIUM 100 MG CAPSULE PO SCH ×2 (09:29→22:05)
[2021-09-15] MEDS: BUDESONIDE/FORMOTEROL 160-4.5 INHALER 6 GM INH SCH ×2 (09:30→22:07)
[2021-09-15] MEDS: AZITHROMYCIN INJ 500 MG in SODIUM CHLORIDE 0.9% 250 ML IV SCH (17:25)
[2021-09-15] MEDS: PROMETHAZINE 25 MG/1 ML VIAL IM SCH ×2 (17:36→22:08)
[2021-09-15] MEDS ORDERED: MAGNESIUM HYDROXIDE PO SCH (18:00)
[2021-09-15] MEDS ORDERED: [UNRECOGNIZED DRUG - OTHER] PO SCH (18:00)
[2021-09-15] MEDS: FAMOTIDINE 20 MG TABLET PO SCH (22:05)
[2021-09-15] MEDS: ENOXAPARIN 30 MG/0.3 ML SYRINGE SUBCUT SCH (22:06)
[2021-09-15] MEDS: MEGESTROL 400 MG/10 ML UDCUP PO SCH (22:06)
[2021-09-16] MEDS: methylPREDNISolone SOD SUC 40 MG/1 ML VIAL IV SCH ×2 (03:10→14:41)
[2021-09-16] MEDS: PROMETHAZINE 25 MG/1 ML VIAL IM SCH ×6 (03:10→21:07)
[2021-09-16] MEDS: LACTATED RINGERS 1,000 ML IV SCH ×3 (03:17→16:30)
[2021-09-16 05:38] LABS: Basophils % 0.2 % (0.0-0.8); Hematocrit 25.6 VOL% (42.0-52.0); Hemoglobin 8.1 GM/DL (14.0-18.0); Immature Granulocytes % 3.3 %; Immature Granulocytes Absolute 0.78 #; Lymphocytes % 0.2 % (21.2-54.2); Mean Corpuscular HGB Conc 31.6 GM/DL (32-36); Mean Corpuscular Volume 81.8 FL (87-102); Mean Platelet Volume 10.4 FL (9.6-12.0); Monocytes % 2.4 % (1.7-12.7); NRBC # 0.29 10*3/uL; Neutrophils % 93.9 % (38.7-73.9); Platelet Count 232 T/CUMM (130-400); Red Blood Count 3.13 MC/CUMM (3.8-5.5); Red Cell Distribution Width 16.8 % (9.3-17.3); White Blood Count 23.6 T/CUMM (4-12)
[2021-09-16] MEDS: PIPERACILLIN/TAZOBACTAM 3,375 MG in SODIUM CHLORIDE 0.9% 100 ML IV SCH ×3 (05:50→21:05)
[2021-09-16 05:58] LABS: Albumin 2.7 G/DL (3.4-5.0); Bilirubin,Total 6.2 MG/DL (0.20-1.00); Calcium 8.5 MG/DL (8.5-10.1); Osmolality,Calculated 303.1 MOS/KG (273-304); Potassium 4.8 MMOL/L (3.5-5.1)
[2021-09-16 06:10] LABS: Hypochromasia Slight; Lymphocytes 3 % (20-55); Nucleated Red Blood Cells 1 (0-5); Platelet Estimate Normal; Segmented Neutrophils 94 % (50-85); Total Cells Counted 100
[2021-09-16] MEDS: DOCUSATE SODIUM 100 MG CAPSULE PO SCH ×2 (09:00→21:07)
[2021-09-16] MEDS: MEGESTROL 400 MG/10 ML UDCUP PO SCH ×2 (09:00→21:06)
[2021-09-16] MEDS: PANTOPRAZOLE 40 MG TABLET PO SCH (09:01)
[2021-09-16] MEDS: FAMOTIDINE 20 MG TABLET PO SCH ×2 (09:01→21:06)
[2021-09-16] MEDS: METOPROLOL TARTRATE 25 MG TABLET PO SCH ×2 (09:01→21:06)
[2021-09-16] MEDS: FUROSEMIDE 20 MG TABLET PO SCH (09:01)
[2021-09-16] MEDS: BUDESONIDE/FORMOTEROL 160-4.5 INHALER 6 GM INH SCH ×2 (09:01→21:11)
[2021-09-16] MEDS: FENOFIBRATE 145 MG TABLET PO SCH (09:01)
[2021-09-16] MEDS: AZITHROMYCIN INJ 500 MG in SODIUM CHLORIDE 0.9% 250 ML IV SCH (14:41)
[2021-09-16] MEDS: MULTIVITAMIN INJ 10 ML in AMINO ACIDS/DEXT/LYTES 4.25-5% 2,000 ML IV SCH (17:40)
[2021-09-16] MEDS: ENOXAPARIN 30 MG/0.3 ML SYRINGE SUBCUT SCH (21:07)
[2021-09-17] MEDS: PROMETHAZINE 25 MG/1 ML VIAL IM SCH ×6 (03:06→22:32)
[2021-09-17] MEDS: PIPERACILLIN/TAZOBACTAM 3,375 MG in SODIUM CHLORIDE 0.9% 100 ML IV SCH ×3 (03:06→22:32)
[2021-09-17] MEDS: methylPREDNISolone SOD SUC 40 MG/1 ML VIAL IV SCH ×2 (03:07→15:19)
[2021-09-17] MEDS: LACTATED RINGERS 1,000 ML IV SCH ×3 (04:01→17:34)
[2021-09-17 04:20] LABS: Basophils % 0.2 % (0.0-0.8); Hematocrit 25.3 VOL% (42.0-52.0); Hemoglobin 8.1 GM/DL (14.0-18.0); Immature Granulocytes % 4.1 %; Immature Granulocytes Absolute 0.92 #; Lymphocytes # 0.1 10*3/uL (1.4-4.0); Lymphocytes % 0.4 % (21.2-54.2); Mean Corpuscular Volume 79.3 FL (87-102); Mean Platelet Volume 10.6 FL (9.6-12.0); Monocytes % 3.6 % (1.7-12.7); NRBC # 0.58 10*3/uL; Neutrophils % 91.7 % (38.7-73.9); Platelet Count 192 T/CUMM (130-400); Red Blood Count 3.19 MC/CUMM (3.8-5.5); Red Cell Distribution Width 16.5 % (9.3-17.3); White Blood Count 22.6 T/CUMM (4-12)
[2021-09-17 04:40] LABS: Lymphocytes 4 % (20-55); Nucleated Red Blood Cells 3 (0-5); Segmented Neutrophils 90 % (50-85); Total Cells Counted 100
[2021-09-17 04:41] LABS: Hypochromasia 1+; Microcytosis 1+
[2021-09-17 04:42] LABS: Albumin 2.2 G/DL (3.4-5.0); Bilirubin,Total 5.7 MG/DL (0.20-1.00); Calcium 8.3 MG/DL (8.5-10.1); Osmolality,Calculated 297.7 MOS/KG (273-304); Platelet Estimate Adequate; Potassium 4.8 MMOL/L (3.5-5.1); Target Cells Few; Total Protein 6.6 G/DL (6.4-8.2)
[2021-09-17 04:43] LABS: % Iron Saturation 67.3 % (18-50); Ferritin 1612.3 ng/mL (26-388)
[2021-09-17] MEDS: METOPROLOL TARTRATE 25 MG TABLET PO SCH ×2 (08:04→22:31)
[2021-09-17] MEDS: PANTOPRAZOLE 40 MG TABLET PO SCH (09:04)
[2021-09-17] MEDS: FUROSEMIDE 20 MG TABLET PO SCH (09:04)
[2021-09-17] MEDS: FENOFIBRATE 145 MG TABLET PO SCH (09:04)
[2021-09-17] MEDS: FAMOTIDINE 20 MG TABLET PO SCH ×2 (09:05→22:31)
[2021-09-17] MEDS: DOCUSATE SODIUM 100 MG CAPSULE PO SCH ×2 (09:05→22:31)
[2021-09-17] MEDS: BISACODYL 5 MG TABLET PO SCH (09:05)
[2021-09-17] MEDS: MEGESTROL 400 MG/10 ML UDCUP PO SCH ×2 (09:06→22:32)
[2021-09-17] MEDS: BUDESONIDE/FORMOTEROL 160-4.5 INHALER 6 GM INH SCH ×2 (09:10→22:32)
[2021-09-17] MEDS: AZITHROMYCIN INJ 500 MG in SODIUM CHLORIDE 0.9% 250 ML IV SCH (15:19)
[2021-09-17] MEDS: MULTIVITAMIN INJ 10 ML in AMINO ACIDS/DEXT/LYTES 4.25-5% 2,000 ML IV SCH (17:29)
[2021-09-17] MEDS: ENOXAPARIN 30 MG/0.3 ML SYRINGE SUBCUT SCH (22:32)
[2021-09-18] MEDS: methylPREDNISolone SOD SUC 40 MG/1 ML VIAL IV SCH ×2 (03:25→19:27)
[2021-09-18] MEDS: PROMETHAZINE 25 MG/1 ML VIAL IM SCH ×7 (03:26→22:05)
[2021-09-18] MEDS: PIPERACILLIN/TAZOBACTAM 3,375 MG in SODIUM CHLORIDE 0.9% 100 ML IV SCH ×3 (04:55→21:34)
[2021-09-18 07:39] LABS: Basophils # 0.1 10*3/uL (0.0-0.2); Basophils % 0.3 % (0.0-0.8); Eosinophils % 0.1 % (0.00-10.9); Hematocrit 25.5 VOL% (42.0-52.0); Hemoglobin 8.4 GM/DL (14.0-18.0); Immature Granulocytes % 9.4 %; Immature Granulocytes Absolute 2.68 #; Lymphocytes # 0.4 10*3/uL (1.4-4.0); Lymphocytes % 1.3 % (21.2-54.2); Mean Corpuscular HGB Conc 32.9 GM/DL (32-36); Mean Corpuscular Volume 75.2 FL (87-102); Mean Platelet Volume 10.3 FL (9.6-12.0); Monocytes % 3.9 % (1.7-12.7); NRBC # 1.54 10*3/uL; Platelet Count 174 T/CUMM (130-400); Red Blood Count 3.39 MC/CUMM (3.8-5.5); Red Cell Distribution Width 16.3 % (9.3-17.3); White Blood Count 28.6 T/CUMM (4-12)
[2021-09-18 08:03] LABS: Lymphocytes 3 % (20-55); Metamyelocytes 1 %; Nucleated Red Blood Cells 1 (0-5); Segmented Neutrophils 89 % (50-85); Total Cells Counted 100
[2021-09-18 08:04] LABS: Hypochromasia 2+; Polychromasia Slight; Target Cells 1+
[2021-09-18 08:05] LABS: Anisocytosis 1+; Platelet Estimate Adequate
[2021-09-18 08:12] LABS: Albumin 2.2 G/DL (3.4-5.0); Bilirubin,Total 6.2 MG/DL (0.20-1.00); Calcium 8.6 MG/DL (8.5-10.1); Osmolality,Calculated 296.2 MOS/KG (273-304); Total Protein 6.9 G/DL (6.4-8.2)
[2021-09-18] MEDS: PANTOPRAZOLE 40 MG TABLET PO SCH ×2 (09:41→11:28)
[2021-09-18] MEDS: FENOFIBRATE 145 MG TABLET PO SCH ×2 (09:41→11:28)
[2021-09-18] MEDS: FUROSEMIDE 20 MG TABLET PO SCH ×2 (09:41→11:28)
[2021-09-18] MEDS: MEGESTROL 400 MG/10 ML UDCUP PO SCH ×2 (09:41→22:08)
[2021-09-18] MEDS: DOCUSATE SODIUM 100 MG CAPSULE PO SCH ×3 (09:41→22:08)
[2021-09-18] MEDS: FAMOTIDINE 20 MG TABLET PO SCH ×3 (09:41→22:08)
[2021-09-18] MEDS: BUDESONIDE/FORMOTEROL 160-4.5 INHALER 6 GM INH SCH ×2 (09:43→22:02)
[2021-09-18] MEDS: METOPROLOL TARTRATE 25 MG TABLET PO SCH ×3 (09:44→22:16)
[2021-09-18] MEDS: LACTATED RINGERS 1,000 ML IV SCH ×4 (12:24→23:01)
[2021-09-18] MEDS ORDERED: EPINEPHrine 1 MG/10 ML SYRINGE ONE (18:43)
[2021-09-18] MEDS ORDERED: SODIUM BICARBONATE 50 MEQ/50 ML SYRINGE IV ONE (18:48)
[2021-09-18] MEDS ORDERED: AMIODARONE 150 MG/3 ML VIAL ONE (18:48)
[2021-09-18] MEDS ORDERED: AMIODARONE 450 MG/9 ML VIAL IV ONE (18:55)
[2021-09-18] MEDS ORDERED: VASOPRESSIN 100 UNITS in SODIUM CHLORIDE 0.9% 95 ML IV PRN (19:29)
[2021-09-18] MEDS ORDERED: NOREPINEPHRINE 8 MG in SODIUM CHLORIDE 0.9% 242 ML IV PRN (19:29)
[2021-09-18 19:44] VITALS: BP 145/81
[2021-09-18] MEDS ORDERED: AMIODARONE INJ 450 MG in DEXTROSE 5% 241 ML IV SCH (20:00)
[2021-09-18] MEDS: NOREPINEPHRINE 16 MG in SODIUM CHLORIDE 0.9% 234 ML IV PRN ×2 (20:10→23:02)
[2021-09-18 20:23] LABS: Basophils # 0.4 10*3/uL (0.0-0.2); Eosinophils # 0.1 10*3/uL (0.0-0.87); Eosinophils % 0.1 % (0.00-10.9); Hematocrit 28.3 VOL% (42.0-52.0); Hemoglobin 9.1 GM/DL (14.0-18.0); Immature Granulocytes % 14.4 %; Immature Granulocytes Absolute 6.35 #; Lymphocytes # 1.1 10*3/uL (1.4-4.0); Lymphocytes % 2.6 % (21.2-54.2); Mean Corpuscular HGB Conc 32.2 GM/DL (32-36); Mean Corpuscular Volume 78.4 FL (87-102); Mean Platelet Volume 11.3 FL (9.6-12.0); Monocytes % 5.2 % (1.7-12.7); NRBC # 8.68 10*3/uL; Neutrophils % 76.7 % (38.7-73.9); Platelet Count 238 T/CUMM (130-400); Red Blood Count 3.61 MC/CUMM (3.8-5.5); Red Cell Distribution Width 17.2 % (9.3-17.3)
[2021-09-18 20:26] LABS: White Blood Count 44.1 T/CUMM (4-12)
[2021-09-18] MEDS ORDERED: SODIUM CHLORIDE 0.9% 2,000 ML IV ONE (20:26)
[2021-09-18 20:34] LABS: INR 1.9; PT Patient Result 20.2 SECS (10.5-12.0); Partial Thromboplastin Time 40.9 SECS (23.8-32.1)
[2021-09-18 20:47] LABS: Alanine Aminotransferase 43 U/L (16-61); Albumin 2.1 G/DL (3.4-5.0); Alkaline Phosphatase 295 U/L (45-117); Amylase 35 U/L (25-115); Aspartate Amino Transferase 482 U/L (0-37); Blood Urea Nitrogen 88 MG/DL (7-18); Calcium 8.5 MG/DL (8.5-10.1); Carbon Dioxide 18 MMOL/L (21-32); Estimated Glom Filtration Rate 24 ML/MIN; Glucose 183 MG/DL (74-106); Osmolality,Calculated 308.5 MOS/KG (273-304); Potassium 5.5 MMOL/L (3.5-5.1); Sodium 139 MMOL/L (136-145); Total Protein 6.8 G/DL (6.4-8.2)
[2021-09-18 20:54] LABS: Band Neutrophils 4 % (0-10); Lymphocytes 3 % (20-55); Metamyelocytes 2 %; Nucleated Red Blood Cells 20 (0-5); Segmented Neutrophils 85 % (50-85); Total Cells Counted 100
[2021-09-18 20:55] LABS: Anisocytosis 1+; Hypochromasia 1+; Target Cells 1+
[2021-09-18 20:55] LABS: ABG Base Excess -13.5 MMOL/L (-2.5-2.5); ABG HCO3 13.8 MMOL/L (20-26); ABG Oxygen Saturation 97.3 % (95-100); ABG PCO2 31.6 MM HG (35-48); ABG PH 7.226 (7.35-7.45); ABG TCO2 12.4 MMOL/L (23-27)
[2021-09-18 20:56] LABS: Macrocytosis 1+; Platelet Estimate Adequate; Polychromasia 1+
[2021-09-18] MEDS: MULTIVITAMIN INJ 10 ML in AMINO ACIDS/DEXT/LYTES 4.25-5% 2,000 ML IV SCH (21:42)
[2021-09-18] MEDS: ENOXAPARIN 30 MG/0.3 ML SYRINGE SUBCUT SCH (22:03)
[2021-09-19] MEDS ORDERED: SODIUM CHLORIDE 0.9% 500 ML IV ONE (02:10)
[2021-09-19] MEDS ORDERED: SODIUM BICARBONATE 50 MEQ/50 ML VIAL IV ONE ×2 (02:11→04:45)
[2021-09-19] MEDS: NOREPINEPHRINE 16 MG in SODIUM CHLORIDE 0.9% 234 ML IV PRN ×7 (02:16→16:25)
[2021-09-19 02:41] LABS: Bilirubin,Urine Negative (Negative); Blood, Urine Small mg/dL (Negative); Glucose,Urine (UA) 50 mg/dL (Negative); Granular Casts,Urine 33 /LPF (0-1); Hyaline Casts,Urine 33 /LPF (0-3); Ketones,Urine Negative (Negative); Mucus,Urine Occasional /LPF (Occasional); Nitrite,Urine Negative (Negative); Protein,Urine >=500 MG/DL; RBC,Urine 14 /HPF (0-4); Squamous Epithelial Cell,Urine Few /HPF (0-10); Urine Appearance CLOUDY (Clear); Urine Color Amber (Yellow); Urine Specific Gravity 1.019 (1.001-1.035); Urine Urobilinogen < 2.0 EU/DL (0.2-1.0)
[2021-09-19] MEDS: PROMETHAZINE 25 MG/1 ML VIAL IM SCH ×2 (03:03→05:50)
[2021-09-19] MEDS: AMIODARONE INJ 450 MG in DEXTROSE 5% 241 ML IV SCH ×2 (03:25→18:38)
[2021-09-19] MEDS: methylPREDNISolone SOD SUC 40 MG/1 ML VIAL IV SCH (03:29)
[2021-09-19 04:04] LABS: Albumin 1.6 G/DL (3.4-5.0); Bilirubin,Total 5.8 MG/DL (0.20-1.00); Calcium 7.8 MG/DL (8.5-10.1); Osmolality,Calculated 304.7 MOS/KG (273-304); Potassium 5.6 MMOL/L (3.5-5.1); Total Protein 5.6 G/DL (6.4-8.2)
[2021-09-19 04:26] LABS: Allen Test Positive; Pt O2 Delivery Device Ventilator
[2021-09-19 04:28] LABS: ABG Base Excess -23.6 MMOL/L (-2.5-2.5); ABG HCO3 7.7 MMOL/L (20-26); ABG Oxygen Saturation 96.6 % (95-100); ABG PCO2 29.2 MM HG (35-48); ABG TCO2 6.9 MMOL/L (23-27)
[2021-09-19 04:30] LABS: ABG PH 6.986 (7.35-7.45)
[2021-09-19] MEDS: PIPERACILLIN/TAZOBACTAM 3,375 MG in SODIUM CHLORIDE 0.9% 100 ML IV SCH ×2 (04:32→12:45)
[2021-09-19 04:46] LABS: Basophils # 0.4 10*3/uL (0.0-0.2); Basophils % 0.9 % (0.0-0.8); Hematocrit 26.8 VOL% (42.0-52.0); Hemoglobin 8.2 GM/DL (14.0-18.0); Immature Granulocytes % 13.3 %; Immature Granulocytes Absolute 6.38 #; Lymphocytes # 1.1 10*3/uL (1.4-4.0); Lymphocytes % 2.3 % (21.2-54.2); Mean Corpuscular HGB Conc 30.6 GM/DL (32-36); Mean Corpuscular Volume 82.2 FL (87-102); Mean Platelet Volume 10.9 FL (9.6-12.0); Monocytes % 5.8 % (1.7-12.7); NRBC # 11.21 10*3/uL; Neutrophils % 77.7 % (38.7-73.9); Platelet Count 214 T/CUMM (130-400); Red Blood Count 3.26 MC/CUMM (3.8-5.5); Red Cell Distribution Width 18.4 % (9.3-17.3)
[2021-09-19 04:48] LABS: White Blood Count 47.8 T/CUMM (4-12)
[2021-09-19 05:09] LABS: Band Neutrophils 3 % (0-10); Eosinophils 1 % (0-10); Hypochromasia Slight; Lymphocytes 3 % (20-55); Nucleated Red Blood Cells 22 (0-5); Platelet Estimate Adequate; Segmented Neutrophils 88 % (50-85); Total Cells Counted 100
[2021-09-19 05:10] LABS: Target Cells Few
[2021-09-19] MEDS: LACTATED RINGERS 1,000 ML IV SCH (07:19)
[2021-09-19] MEDS: SODIUM BICARB INJ 150 MEQ in DEXTROSE 5% 1,000 ML IV SCH ×2 (07:41→14:46)
[2021-09-19 08:24] LABS: ABG Base Excess -21.7 MMOL/L (-2.5-2.5); ABG HCO3 8.7 MMOL/L (20-26); ABG Oxygen Saturation 95.7 % (95-100); ABG PCO2 30.8 MM HG (35-48); Allen Test Positive; Pt O2 Delivery Device Ventilator
[2021-09-19 08:28] LABS: ABG PH 7.029 (7.35-7.45)
[2021-09-19] MEDS: HYDROCORTISONE 100 MG VIAL IV SCH ×2 (09:55→18:40)
[2021-09-19] MEDS: BUDESONIDE/FORMOTEROL 160-4.5 INHALER 6 GM INH SCH (10:13)
[2021-09-19] MEDS: DOCUSATE SODIUM 100 MG CAPSULE PO SCH (10:14)
[2021-09-19] MEDS: PANTOPRAZOLE 40 MG TABLET PO SCH (10:14)
[2021-09-19] MEDS: MEGESTROL 400 MG/10 ML UDCUP PO SCH (10:17)
[2021-09-19] MEDS: FAMOTIDINE 20 MG TABLET PO SCH (10:17)
[2021-09-19] MEDS ORDERED: MORPHINE 2 MG/1 ML SYRINGE IV PRN (17:30)
[2021-09-19] MEDS ORDERED: LORazepam 2 MG/1 ML VIAL IV PRN (17:30)
[2021-09-19] MEDS ORDERED: LORazepam 2 MG/1 ML VIAL ONE (18:14)
[2021-09-19] MEDS: MULTIVITAMIN INJ 10 ML in AMINO ACIDS/DEXT/LYTES 4.25-5% 2,000 ML IV SCH (18:38)
== END 2021-09-19 18:18 | disposition expired | DRG 281 ==
LOC: EDUNIT# → EDBD → N.ED 01:37 → N.EDINP 05:08 → SUATTDRO 05:08 → N.5E 11:52 → N.CC 09-18 18:32
PROVIDERS: ADMIT Internal Medicine; ATTEND Family Medicine